=== PATIENT | male | born 1945 ===

== ENCOUNTER 2017-04-20 19:23 | Inpatient (IN) | payer MEDICARE, OTHER ==
--- NOTE | 2017-04-20 19:59 | ED PDOC ---
Arrival/HPI - General Chief Complaint: Dizziness/Lightheaded Time Seen by Provider: 04/20/17 19:30 Historian: Patient - History of Present Illness Narrative History of Present Illness (Text): 04/20/17 19:47 A 71 year old male, whose past medical history includes hypertension, prostate CA, and A-fib on Pradaxa, is brought in by ambulance, presents to the emergency department complaining of near-syncopal episode while at work. Patient reports experiencing, dizziness, as well as slurred speech and had difficulty speaking at the time (which has now resolved). Patient denies any headache, chest pain, shortness of breath, focal weakness, or any other complaints. PMD: Dr. Rico Past Medical History - Provider Review Nursing Documentation Reviewed: Yes - Infectious Disease Hx of Infectious Diseases: None - Cardiac Hx Hypertension: Yes - Genitourinary/Gynecological Hx Prostate Cancer: Yes Hx Prostate Problems: Yes - Psychiatric Hx Substance Use: No - Anesthesia Hx Anesthesia: No Family/Social History - Physician Review Nursing Documentation Reviewed: Yes Family/Social History: No Known Family HX Smoking Status: Never Smoked Hx Alcohol Use: No Hx Substance Use: No Allergies/Home Meds Allergies/Adverse Reactions: Allergies No Known Allergies Allergy (Verified 04/20/17 19:40) Home Medications: Home Meds Medication Instructions Recorded Confirmed Allopurinol [Zyloprim] 300 mg PO DAILY 03/07/16 03/07/16 Dabigatran [Pradaxa] 150 mg PO DAILY 03/07/16 03/07/16 Fenofibrate [Triglide] 160 mg PO DAILY 03/07/16 03/07/16 Furosemide [Lasix] 40 mg PO DAILY 03/07/16 03/07/16 Lisinopril [Zestril] 40 mg PO DAILY 03/07/16 03/07/16 Nebivolol [Bystolic] 20 mg PO DAILY 03/07/16 03/07/16 Pravastatin Sodium [Pravachol] 40 mg PO DAILY 03/07/16 03/07/16 Spironolactone [Aldactone] 25 mg PO DAILY 03/07/16 03/07/16 Review of Systems - Physician Review All systems were reviewed & negative as marked: Yes - Review of Systems Respiratory: absent: SOB Cardiovascular: absent: Chest Pain, Syncope (near-syncopal episode) Neurological: Dizziness, Speech Changes (patient was experieincing slurred speech and difficulty speaking at time of near-syncopal episode while at work.) . absent: Headache, Focal Weakness Physical Exam Vital Signs Temp Pulse Resp BP Pulse Ox 04/20/17 23:23 89 16 137/82 97 04/20/17 20:30 93 H 17 140/85 95 04/20/17 20:03 98.5 F 90 17 123/58 L 98 Mental Status: Positive for: Alert and Oriented X 3 - Systems Exam Head: Present: Atraumatic, Normocephalic Pupils: Present: PERRL Extroacular Muscles: Present: EOMI Conjunctiva: Present: Normal Mouth: Present: Moist Mucous Membranes Neck: Present: Normal Range of Motion Respiratory/Chest: Present: Clear to Auscultation, Good Air Exchange. No: Respiratory Distress, Accessory Muscle Use Cardiovascular: Present: Regular Rate and Rhythm, Normal S1, S2. No: Murmurs Abdomen: Present: Normal Bowel Sounds. No: Tenderness, Distention, Peritoneal Signs Back: Present: Normal Inspection Upper Extremity: Present: Normal Inspection. No: Cyanosis, Edema Lower Extremity: Present: Normal Inspection. No: Edema Neurological: Present: GCS=15, CN II-XII Intact, Speech Normal Skin: Present: Warm, Dry, Normal Color. No: Rashes Psychiatric: Present: Alert, Oriented x 3, Normal Insight, Normal Concentration Medical Decision Making ED Course and Treatment: 04/20/17 20:01 Impression: 71 year old male with near-syncopal episode. Physical exam is benign. Plan: -- EKG -- Chest xray -- Head CT -- Labs -- Urinalysis -- IV Fluids -- Reassess and disposition Progress Notes: 04/20/17 20:40 Case had been d/w the neurologist .Pt. not a candidate for TPA given resolution of symptoms/on Pradaxa. Report date: 04/20/17 21:14 EXAM: CT Head Without Intravenous Contrast Dictated and Authenticated by: Angi Shah MD IMPRESSION: Bilateral white matter changes. This is nonspecific and may include microangiopathic disease, small lacunae of indeterminate chronicity, chronic infarcts and/or encephalomalacia. 04/20/17 22:[address] Truong, who accepts admission under her service. Patient aware of and in agreement with plan. - Lab Interpretations Lab Results: 04/20/17 19:49 04/20/17 19:49 Lab Results 04/20/17 19:49: Sodium 143, Potassium 4.6, Chloride 104, Carbon Dioxide 28, Anion Gap 16, BUN 32 H, Creatinine 1.4, Est GFR ( Amer) > 60, Est GFR ( Non-Af Amer) 50, Random Glucose 102, Calcium 10.5, Total Bilirubin 0.5, AST 38, ALT 34, Alkaline Phosphatase 63, Troponin I < 0.01, Total Protein 7.7, Albumin 4.3, Globulin 3.4, Albumin/Globulin Ratio 1.3, Triglycerides 73, Cholesterol 150 , LDL Cholesterol Direct 96, HDL Cholesterol 44 04/20/17 19:49: PT 12.3, INR 1.08, APTT 32.9 04/20/17 19:49: WBC 13.9 H, RBC 4.80, Hgb 14.7, Hct 43.9, MCV 91.5, MCH 30.6, MCHC 33.5, RDW 13.3, Plt Count 333, MPV 10.2, Gran % 62.3, Lymph % (Auto) 22.7, Baxter % (Auto) 14.2 H, Eos % (Auto) 0.6 L, Baso % (Auto) 0.2, Gran # 8.67 H, Lymph # (Auto) 3.2, Baxter # (Auto) 2.0 H, Eos # (Auto) 0.1, Baso # (Auto) 0.03 - RAD Interpretation Narrative RAD Interpretations (Text): 04/20/17 21:20 CXR- no acute process Radiology Orders: 04/20/17 19:53 HEAD W/O (CODE STROKE) [CT] Stat CHEST PORTABLE [RAD] Stat Medical Program Specialist: ED Physician - EKG Interpretation EKG Interpretation (Text): 04/20/17 21:20 EKG- Atrial fibrillation@ 87,NS T wave changes Interpreted by ED Physician: Yes Type: 12 lead EKG - Medication Orders Current Medication Orders: Sodium Chloride (Sodium Chloride 0.9%) 1,000 mls @ 100 mls/hr IV .Q10H [facility] Last Admin: 04/20/17 20:06 Dose: 100 mls/hr eMAR Start Stop Document 04/20/17 20:06 HI (Rec: 04/20/17 20:06 NH [id number]) Intravenous Solution Start Date 04/20/17 Start Time 20:06 NIHSS Scale ([place]) Time Performed: 19:50 - How Severe is the Stoke Baseline Level of Consciousness: 0=Alert LOC to Questions: 0=Both comments correct LOC to commands: 0=Obeys both correctly Best Gaze: 0=Normal Visual: 0=No visual loss Facial: 0=Normal Motor Arm - Left: 0=No drift Motor Arm - Right: 0=No drift Motor Leg - Left: 0=No drift Motor Leg - Right: 0=No drift Limb Ataxia: 0=Absent Sensory: 0=Normal Best Language: 0=No aphasia Dysarthia: 0=Normal articulation Extinction & Inattention (Neglect): 0=Normal, no object Score: 0 Risk Level: No Stroke Risk rTPA Inclusion/Exclusion - Refusal of Treatment Patient Refused Treatment: No - Inclusion Criteria for Altepase Patient is 18 years or Older: Yes The Clinical Diagnosis of Ischemic Stroke That is Causing a Potentially Disabling Neurological Deficit: No Time of Onset is Well Established to be Less Than 270 Minute Before Treatment Would Begin: Yes Risk/Benefit Discussed With Patient/Family Member Present: Yes - Exclusion Criteria for Altepase Uncontrolled Hypertension at Time of Treatment (Systolic BP above 185 or Diastolic BP above 110 mmHg): No Active Internal Bleeding: No Known Bleeding Diathesis Including but Not Limited to: Platelets Below 100,000/ mm,PTT Above 40 sec After Heparin Use, Current Use of Oral Anitcoagulant With INR Greater Than 1.7 or PT Greater Than 15 secs: No Evidence of an Intracranial Hemorrhage: No Evidence of Major Acute Infarct With Signs Greater Than 1/3 MCA Territory: No Suspicion of Subarachnoid Hemorrhage on Pretreatment Evaluation Even if CT Head Negative For Hemorrhage: No - Warning to TPA With Conditions Condition: Rapid Improvement NIHSS Stroke Scale 3 - Date/Time Evaluation Performed Date Performed: 04/20/17 Time Performed: 19:47 - Scribe Statement The provider has reviewed the documentation as recorded by the Hunter Melvin Provider Scribe Attestation: All medical record entries made by the Scribyony were at my direction and personally dictated by me. I have reviewed the chart and agree that the record accurately reflects my personal performance of the history, physical exam, medical decision making, and the department course for this patient. I have also personally directed, reviewed, and agree with the discharge instructions and disposition. Disposition/Present on Arrival - Present on Arrival Any Indicators Present on Arrival: No History of DVT/PE: No History of Uncontrolled Diabetes: No Urinary Catheter: No History of Decub. Ulcer: No History Surgical Site Infection Following: None - Disposition Have Diagnosis and Disposition been Completed?: Yes Diagnosis: Near syncope, TIA (transient ischemic attack) Disposition: HOSPITALIZED Disposition Time: 22:10 Patient Plan: Observation Patient Problems: Current Active Problems Problem Status Onset Near syncope Acute TIA (transient ischemic attack) Acute Condition: STABLE
[2017-04-20] MEDS ORDERED: Sodium Chloride 0.9% 1,000 ML IV SCH (20:00)
[2017-04-20 20:02] LABS: BASO # 0.03 K/mm3 (0.0-2.0); BASO % 0.2 % (0.0-3.0); EOS # 0.1 (0.0-0.7); EOS % 0.6 % (1.5-5.0); GRAN # 8.67 (1.4-6.5); GRAN % 62.3 % (50.0-68.0); HEMOGLOBIN 14.7 g/dL (14.0-18.0); LYMPH # 3.2 (1.2-3.4); LYMPH % 22.7 % (22.0-35.0); MEAN CELL VOLUME 91.5 fl (80.0-105.0); MEAN CORPUSCULAR HEMOGLOBIN 30.6 pg (25.0-35.0); MEAN CORPUSCULAR HGB CONC 33.5 g/dl (31.0-37.0); MEAN PLATELET VOLUME 10.2 fl (7.0-11.0); MONO % 14.2 % (1.0-6.0); RBC 4.8 10^6/uL (3.5-6.1); RED CELL DISTRIBUTION WIDTH 13.3 % (11.5-14.5); WHITE BLOOD COUNT 13.9 10^3/ul (4.5-11.0)
[2017-04-20 20:10] LABS: INR 1.08 (0.93-1.08); PARTIAL THROMBOPLASTIN TIME 32.9 Seconds (25.1-36.5); PROTHROMBIN TIME 12.3 SECONDS (9.4-12.5)
[2017-04-20 20:12] LABS: ALB/GLOB RATIO 1.3 (1.1-1.8); ALBUMIN 4.3 g/dL (3.0-4.8); ALT/SGPT 34 U/L (7-56); AST/SGOT 38 U/L (17-59); BLOOD UREA NITROGEN 32 mg/dL (7-21); CALCIUM 10.5 mg/dL (8.4-10.5); GFR AFRICAN-AMERICAN > 60; GFR NON-AFRICAN AMERICAN 50; HDL CHOLESTEROL 44 mg/dL (29-60)
--- NOTE | 2017-04-20 20:15 | CT ---
EXAM: CT Head Without Intravenous Contrast CLINICAL HISTORY: 71 years old, male; Signs and symptoms; Speech disturbance; Slurred speech; Additional info: Code stroke TECHNIQUE: Axial computed tomography images of the head/brain without intravenous contrast. All CT scans at this facility use one or more dose reduction techniques, viz.: automated exposure control; ma/kV adjustment per patient size (including targeted exams where dose is matched to indication; i.e. head); or iterative reconstruction technique. Coronal and sagittal reformatted images were created and reviewed. COMPARISON: No relevant prior studies available. FINDINGS: Brain: Bilateral white matter changes. This is nonspecific and may include microangiopathic disease, small lacunae of indeterminate chronicity, chronic infarcts and/or encephalomalacia. No hemorrhage. No edema. Ventricles: No hydrocephalus. Bones: Skull is intact. Sinuses: Mild paranasal sinus mucosal thickening. No acute sinusitis. Mastoid air cells: No mastoid effusion. IMPRESSION: Bilateral white matter changes. This is nonspecific and may include microangiopathic disease, small lacunae of indeterminate chronicity, chronic infarcts and/or encephalomalacia. Acute infarcts/early ischemic changes may not be detectable by this modality; MRI is more sensitive in detecting acute ischemia.
[2017-04-20 20:23] LABS: LDL CHOLESTEROL 96 mg/dL (0-129); TROPONIN I < 0.01 ng/mL
[2017-04-21 04:55] VITALS: BMI 31.5
--- NOTE | 2017-04-21 10:13 | RAD ---
HISTORY: Code Stroke COMPARISON: No prior. FINDINGS: LUNGS: No active pulmonary disease. PLEURA: No significant pleural effusion identified, no pneumothorax apparent. CARDIOVASCULAR: Normal. OSSEOUS STRUCTURES: No significant abnormalities. VISUALIZED UPPER ABDOMEN: Normal. OTHER FINDINGS: None. IMPRESSION: No active disease.
--- NOTE | 2017-04-21 10:14 | CARD ---
APPROVED REPORT EKG Measurement Heart [id number] <Conclusion> Atrial fibrillation Minimal voltage criteria for LVH, may be normal variant Nonspecific T wave abnormality No change
[2017-04-21 10:50] LABS: HEMOGLOBIN 14.1 g/dL (14.0-18.0); MEAN CELL VOLUME 91.1 fl (80.0-105.0); MEAN CORPUSCULAR HEMOGLOBIN 30.5 pg (25.0-35.0); MEAN CORPUSCULAR HGB CONC 33.5 g/dl (31.0-37.0); MEAN PLATELET VOLUME 9.9 fl (7.0-11.0); RBC 4.62 10^6/uL (3.5-6.1); RED CELL DISTRIBUTION WIDTH 13.3 % (11.5-14.5); WHITE BLOOD COUNT 9.3 10^3/ul (4.5-11.0)
[2017-04-21] MEDS: Sodium Chloride 0.9% 1,000 ML IV SCH (10:57)
[2017-04-21] MEDS ORDERED: Nitroglycerin 2% Ointment Foilpak UD TOP PRN (12:59)
--- NOTE | 2017-04-21 17:16 | CP.PCM.CON ---
History of Present Illness - History of Present Illness History of Present Illness: Neurology Consultation Note: Mr. Kiser is a 71-year-old man with a past medical history of hypertension , prostate CA, and A-fib on Pradaxa, who presented to the ED yesterday after an episode of slurred speech, dizziness and near-syncope. When he was evaluated in the ED, he was back to baseline and asymptomatic. However, due to his multiple risk factors for stroke and the duration of symptoms, he was admitted for posterior circulation TIA. Review of Systems - Review of Systems All systems: reviewed and no additional remarkable complaints except Past Patient History - Infectious Disease Hx of Infectious Diseases: None - Past Social History Smoking Status: Never Smoked - CARDIAC Hx Cardiac Disorders: Yes Hx Cardia Arrhythmia: Yes (A-fib) Hx Hypercholesterolemia: Yes Hx Hypertension: Yes - PULMONARY Hx Respiratory Disorders: No - NEUROLOGICAL Hx Neurological Disorder: No - HEENT Hx HEENT Problems: No - RENAL Hx Chronic Kidney Disease: No - HEMATOLOGICAL/ONCOLOGICAL Hx Blood Disorders: Yes Hx Anemia: Yes - INTEGUMENTARY Hx Dermatological Problems: No - MUSCULOSKELETAL/RHEUMATOLOGICAL Hx Musculoskeletal Disorders: Yes Hx Falls: No Hx Fractures: Yes (knee surgery) Hx Gout: Yes - GASTROINTESTINAL Hx Gastrointestinal Disorders: No - GENITOURINARY/GYNECOLOGICAL Hx Genitourinary Disorders: Yes Hx Prostate Problems: Yes (HX of prostate cancer) - PSYCHIATRIC Hx Psychophysiologic Disorder: No - SURGICAL HISTORY Hx Surgeries: Yes Hx Cardiac Catheterization: Yes (PTCA) Hx Cholecystectomy: Yes Hx Orthopedic Surgery: Yes (knee surgery) - ANESTHESIA Hx Anesthesia: No Meds Allergies/Adverse Reactions: Allergies Allergy/AdvReac Type Severity Reaction Status Date / Time No Known Allergies Allergy Verified 04/20/17 19:40 - Medications Medications: Current Medications Acetaminophen (Tylenol 325mg Tab) 650 mg PO Q6H PRN PRN Reason: Fever >100.4 F Allopurinol (Zyloprim) 300 mg PO DAILY [facility] Atorvastatin Calcium (Lipitor) 40 mg PO DIN [facility] Last Admin: 04/21/17 17:00 Dose: 40 mg Dabigatran (Pradaxa) 75 mg PO BID [facility] PRN Reason: Protocol Last Admin: 04/21/17 17:00 Dose: 75 mg Fenofibrate (Tricor) 145 mg PO DAILY [facility] Furosemide (Lasix) 40 mg PO DAILY [facility] Sodium Chloride (Sodium Chloride 0.9%) 1,000 mls @ 50 mls/hr IV .Q20H [facility] Last Admin: 04/21/17 10:57 Dose: 50 mls/hr Lisinopril (Zestril) 20 mg PO BID [facility] Last Admin: 04/21/17 17:00 Dose: 20 mg Nitroglycerin (Nitro-Bid 2% Oint) 1 ea TOP Q4H PRN PRN Reason: accelerated hypertension Ondansetron HCl (Zofran Inj) 4 mg IVP Q6H PRN PRN Reason: Nausea/Vomiting Spironolactone (Aldactone) 12.5 mg PO DAILY [facility] Physical Exam - Constitutional Appears: Well - Head Exam Head Exam: ATRAUMATIC, NORMAL INSPECTION, NORMOCEPHALIC - Eye Exam Eye Exam: EOMI, Normal appearance, PERRL - Neck Exam Neck exam: Positive for: Normal Inspection - Respiratory Exam Respiratory Exam: Clear to Auscultation Bilateral, NORMAL BREATHING PATTERN - GI/Abdominal Exam GI & Abdominal Exam: Normal Bowel Sounds, Soft. absent: Tenderness - Rectal Exam Rectal Exam: Deferred - Back Exam Back exam: NORMAL INSPECTION - Neurological Exam Neurological exam: Alert, CN II-XII Intact, Normal Gait, Oriented x3, Reflexes Normal Additional comments: NIHSS = 0 - Psychiatric Exam Psychiatric exam: Normal Affect, Normal Mood - Skin Skin Exam: Dry, Intact, Normal Color, Warm Results - Vital Signs Recent Vital Signs: Last Vital Signs Temp 98.2 F 04/21/17 12:00 Pulse 61 04/21/17 14:00 Resp 17 04/21/17 12:00 BP 113/68 04/21/17 12:00 Pulse Ox 96 04/21/17 05:33 - Labs Result Diagrams: 04/21/17 10:40 04/20/17 19:49 Labs: Laboratory Results - last 24 hr 04/21/17 10:40 WBC 9.3 D RBC 4.62 Hgb 14.1 Hct 42.1 MCV 91.1 MCH 30.5 MCHC 33.5 RDW 13.3 Plt Count 316 MPV 9.9 Assessment & Plan (1) TIA (transient ischemic attack) Assessment and Plan: The patient is on Pradaxa for atrial fibrillation and is stable without complications. I recommend continuing this medication for stroke prevention. In addition, I recommend the followin. Telemetry 2. MRI brain without contrast, and MRA of the head/neck without contrast 3. Echocardiogram with bubble study 4. Continue Lipitor at current dose 5. PT/OT eval and treatment 6. Fluids with NS at 100 mL/hr 7. Check lipid panel, HbA1c, TSH, B12, folate, vitamin D levels 8. Case management consult Thank you. Status: Acute Priority: High
--- NOTE | 2017-04-21 18:41 | HP ---
DATE OF EXAM: 04/21/2017 HISTORY OF PRESENT ILLNESS: This 71-year-old male was examined at his bedside in the presence of nurse, Linda Goode, registered nurse. The patient was admitted late last evening through the emergency room with concerns of possible transient ischemic attack. According to the patient, he came home last evening felt dizzy, also was noticing problems with his speech and was concerned about the possibility of a stroke. He came to the [facility] at that time. Upon arrival, had no further symptoms of either dizziness or slurred speech. The patient is admitted to rule out transient ischemic attack. PAST MEDICAL HISTORY: The patient's past medical history is extensive and includes history of atherosclerotic heart disease stable. He denies any knowledge of cardiac cath or stroke. He recently in the month of March 2016 underwent cardiac testing including 2D echocardiogram and stress test that were notable for enlarged left atrium, borderline left ventricular ejection fraction, and evidence of mitral regurgitation with an unremarkable stress test in the setting of longstanding chronic atrial fibrillation. The patient also has history of hyperlipidemia, hypertension, gout, obesity. OUTPATIENT MEDICATIONS: Include Aldactone, Lasix, Lipitor, Pradaxa, Tricor, Zestril, Zyloprim, Pravachol, Bystolic. Of note, the patient was given IV Lopressor in the emergency room for accelerated hypertension. Also takes digoxin as an outpatient and was noted to have episodes of bradyarrhythmia on the hospital nursing assistant earlier this morning. ALLERGIES: PATIENT DENIES ANY ALLERGIES TO MEDICATION. He is status post prostate cancer, has completed Lupron injections with his [facility] urologist and states he has had a gallbladder removal and left knee surgery in the distant past. The patient states he has had chronic atrial fibrillation since 2005, was initially treated with Coumadin which was then switched to Pradaxa because of issues with bruising on Coumadin. REVIEW OF SYSTEMS: CONSTITUTIONAL: He denied any fever or chills. HEAD: Denied knowledge of seizure or stroke. EYE: No change in visual acuity. EARS: No hearing loss. THROAT: No swallowing difficulty. NECK: No stiffness. CARDIAC: As per HPI. PULMONARY: No cough. No hemoptysis. GASTROINTESTINAL: He has a history of gallbladder removal. GENITOURINARY: He has prostate cancer. VASCULAR: No claudication. PSYCHOLOGICAL: No depression. NEUROLOGICAL: No knowledge of stroke. HEMATOLOGICAL: No knowledge of anemia. ENDOCRINOLOGICAL: No diabetes, but hyperlipidemia. FAMILY HISTORY: Noncontributory. SOCIAL HISTORY: He is a nondrinker, nonsmoker, non IV drug misuser. 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 Temperature 98.2, respirations 17, pulse 61, blood pressure 113/68, and pulse ox 96% on room air. HEENT: Head normocephalic, atraumatic. Eyes: No icterus. Ears: Clear. Throat: Noninjected. NECK: Supple. HEART: Irregular, S1, S2. LUNGS: Clear. ABDOMEN: Obese. Well-healed vertical incisional scar from previous cholecystectomy. EXTREMITIES: No clubbing, no cyanosis, no edema. SKIN: Without rash. NEUROLOGICAL: Intact. 5/5 motor strength. Sensory intact. Cranial nerves intact. Speech is fluent. LABORATORY DATA: Initial white count 13,900, now 9300; hemoglobin 14.1; hematocrit 42.1; platelets rate 316,000. PT/INR 1.08, PTT 32.9. Sodium 143, K 4.6, chloride 104, bicarb 28. BUN 32, creatinine 1.4. Random blood sugar 102. Hemoglobin A1c 6.3. Bilirubin 0.5, AST 38, ALT 34, alk phos 63. Troponin less than 0.01. Cholesterol 150, triglyceride 73, LDL 96, HDL 44. Chest x-ray was reviewed. It showed no active pulmonary disease, no pneumothorax, no infiltrate, no pleural effusion. EKG showed atrial fibrillation with nonspecific ST-T wave changes. Head CT was reviewed. There were bilateral white matter changes. This was felt to be nonspecific. IMPRESSION: A 71-year-old male with admission for dizziness and speech impediment, now resolved, rule out transient ischemic attack with comorbidities of obesity, stable atherosclerotic heart disease, chronic hypertension, chronic atrial fibrillation, hyperlipidemia, degenerative arthritis, and gout. PLAN: The plan as discussed with the patient, emergency room physician, and Nursing at bedside will be to maintain this patient on the cardiac unit. He is ordered to have physical therapy for reconditioning and gait training while maintaining neuro checks q. shift, high fall risk protocol, and neurological evaluation with Dr. Louis Lopez from Neurology. He is ordered to have a heart-healthy soft bland diet, nasal O2 p.r.n. He will continue on Zyloprim 300 mg p.o. daily, Zestril 20 mg p.o. b.i.d., Tricor 145 mg p.o. daily, 0.9 saline at 50 mL/hour, Pradaxa 75 mg p.o. b.i.d., nitroglycerin 1 inch to chest wall q. 4 hours if systolic blood pressure greater than 160 or diastolic blood pressure greater than 100, Lipitor 40 mg p.o. daily, Lasix 40 mg p.o. daily, and Aldactone 12.5 mg p.o. daily. He is ordered to have a basic metabolic panel and lipid panel in the a.m., and I have asked the nurse to coordinate with Dr. Tacho Lopez any additional neurological testing. He may deem fit at this point. Echocardiography and stress testing were reviewed from March 2016, and I will await further evaluation by Neurology before ordering additional testing at this time. Greater than 75 minutes was spent in the care management, review of x-rays, labs, medication, and orders for this patient today. All questions were answered. Kusum Truong MD [facility]
[2017-04-22] MEDS: Sodium Chloride 0.9% 1,000 ML IV SCH (05:53)
[2017-04-22 06:32] LABS: LDL CHOLESTEROL 99 mg/dL (0-129)
[2017-04-22 06:33] LABS: BLOOD UREA NITROGEN 24 mg/dL (7-21); CALCIUM 9.7 mg/dL (8.4-10.5); GFR AFRICAN-AMERICAN > 60; GFR NON-AFRICAN AMERICAN 59; HDL CHOLESTEROL 33 mg/dL (29-60)
--- NOTE | 2017-04-22 07:14 | CP.PCM.PN ---
Subjective - Date & Time of Evaluation Date of Evaluation: 04/22/17 Time of Evaluation: 07:11 - Subjective Subjective: Mr. Kiser was seen and examined at the bedside. He is alert, oriented in all spheres. He denies any headache, blurred vision, diplopia, dizziness, lightheadedness, nausea, or vomiting. He is able to follow simple commands. There was no untoward events overnight. Objective - Vital Signs/Intake and Output Vital Signs (last 24 hours): Temp Pulse Resp BP Pulse Ox 97.3 F L 59 L 20 113/63 96 04/22/17 05:50 04/22/17 05:50 04/22/17 05:50 04/22/17 05:50 04/22/17 05:50 Intake and Output: 04/22/17 04/22/17 06:59 18:59 Intake Total 720 Output Total 1500 Balance -780 - Medications Medications: Current Medications Acetaminophen (Tylenol 325mg Tab) 650 mg PO Q6H PRN PRN Reason: Fever >100.4 F Allopurinol (Zyloprim) 300 mg PO DAILY [facility] Atorvastatin Calcium (Lipitor) 40 mg PO DIN [facility] Last Admin: 04/21/17 17:00 Dose: 40 mg Dabigatran (Pradaxa) 75 mg PO BID [facility] PRN Reason: Protocol Last Admin: 04/21/17 17:00 Dose: 75 mg Fenofibrate (Tricor) 145 mg PO DAILY [facility] Furosemide (Lasix) 40 mg PO DAILY [facility] Sodium Chloride (Sodium Chloride 0.9%) 1,000 mls @ 50 mls/hr IV .Q20H [facility] Last Admin: 04/22/17 05:53 Dose: 50 mls/hr Lisinopril (Zestril) 20 mg PO BID [facility] Last Admin: 04/21/17 17:00 Dose: 20 mg Nitroglycerin (Nitro-Bid 2% Oint) 1 ea TOP Q4H PRN PRN Reason: accelerated hypertension Ondansetron HCl (Zofran Inj) 4 mg IVP Q6H PRN PRN Reason: Nausea/Vomiting Spironolactone (Aldactone) 12.5 mg PO DAILY [facility] - Labs Labs: 04/21/17 10:40 04/22/17 05:40 PT 12.3 SECONDS (9.4-12.5) 04/20/17 19:49 INR 1.08 (0.93-1.08) 04/20/17 19:49 APTT 32.9 Seconds (25.1-36.5) 04/20/17 19:49 - Constitutional Appears: No Acute Distress - Head Exam Head Exam: NORMAL INSPECTION - Neurological Exam Neurological Exam: Alert, Awake, CN II-XII Intact, Oriented x3 Neuro motor strength exam: Left Upper Extremity: 5, Right Upper Extremity: 5, Left Lower Extremity: 5, Right Lower Extremity: 5 Additional comments: He is alert, oriented x3, follows commands. Sensation is intact. Assessment and Plan (1) TIA (transient ischemic attack) Assessment & Plan: Case discussed with Dr. Lopez, continue all current medical, physical, and occupational therapies. Pending MRI of the brain, MRA of the heada and neck, echocardiogram with bubble study. Recommend to check TSH, B12, folate, vitamin D levels. Status: Acute
--- NOTE | 2017-04-22 08:17 | CARD ---
APPROVED REPORT EKG Measurement Heart [id number] <Conclusion> Atrial fibrillation NSSTW changes No change
--- NOTE | 2017-04-22 13:31 | MRI ---
PROCEDURE: MRI BRAIN WITHOUT CONTRAST HISTORY: TIA COMPARISON: Comparison made with prior CT scan of the brain dated 04/20/2017 TECHNIQUE: Multiplanar, multisequence MR images of the brain were obtained without intravenous contrast enhancement. This examination is limited due to motion artifact. FINDINGS: HEMORRHAGE: No acute parenchymal, subarachnoid or extra-axial hemorrhage. No evidence of hemosiderin deposition identified on gradient echo weighted sequence. DWI: There is a small acute/ subacute infarct in the right anterolateral and mid-superior vermis. No additional acute infarct so far as can be seen. Note that the diffusion imaging sequences quite limited due to crossing artifact BRAIN PARENCHYMA: Mild diffuse/ confluent chronic periventricular white matter ischemic changes with multiple tiny lacunar type infarcts scattered about the deep and subcortical white matter both cerebral hemispheres. Additionally, there are chronic appearing brainstem lacunar type ischemic changes. There may also be scattered chronic bilateral basal nuclei lacunar type infarcts difficult to distinguish from numerous dilated perivascular spaces. Moderate volume loss. VENTRICLES: No obstructive hydrocephalus. CRANIUM: There are no acute calvarial fractures. ORBITS: Orbits and contents grossly unremarkable. PARANASAL SINUSES/MASTOIDS: Minimal mucosal thickening noted within the ethmoid air complex VASCULAR SYSTEM: Visualized major vascular flow voids at skull base are patent. OTHER FINDINGS: None. IMPRESSION: Limited motion degraded study. There is a small acute/ subacute right vermian infarct. Mild chronic white matter and brainstem ischemic changes. There may also be a few scattered chronic bilateral basal nuclei lacunar type infarcts difficult to distinguish from numerous dilated perivascular spaces. Moderate volume loss. Acute findings discussed with 2 North charge nurse Chelsea at approximately 1:21 p.m. with written down and read back verification.
--- NOTE | 2017-04-22 13:50 | MRI ---
PROCEDURE: MRA of the brain dated 04/22/2017 HISTORY: TIA COMPARISON: None available. TECHNIQUE: 3D time of flight MR angiography of the intracranial arteries was performed. Rotating maximum intensity projection images were generated. Study is limited by with duplication of the intra cerebral vasculature possibly secondary to utilization of the flex coil for this exam as patient was unable to fit into standard coronal. FINDINGS: INTERNAL CAROTID ARTERIES: Unremarkable. The skull base, petrous, cavernous and supraclinoid segments are bilaterally widely patient. ANTERIOR CEREBRAL ARTERIES: Unremarkable. A1 and A2 segments are widely patent. Smaller distal branches unremarkable, as visualized. MIDDLE CEREBRAL ARTERIES: Unremarkable. M1 and M2 segments are widely patent. Perisylvian branches grossly symmetric. POSTERIOR CIRCULATION: Basilar Artery: Unremarkable. Distal Vertebral Arteries: Unremarkable. Posterior Cerebral Arteries: Unremarkable. Posterior Inferior Cerebellar Arteries: Unremarkable. ANEURYSM/ VASCULAR MALFORMATIONS: No evidence of large aneurysm nor vascular malformation. . OTHER FINDINGS: None. IMPRESSION: Limited study as described. None no evidence of occlusion or significant stenotic lesion. No definitive evidence of large aneurysm nor vascular malformation on within limitation of the exam
--- NOTE | 2017-04-22 16:08 | MRI ---
PROCEDURE: MRA angiography of the neck dated 04/22/2017 and HISTORY: TIA COMPARISON: No prior study available for comparison TECHNIQUE: 2D and 3D phye-rm-ltfbso (TOF) angiography of the neck was performed. Rotating maximum intensity projection images of the cervical carotid and vertebral arteries were generated. The origins of the common carotid arteries were not visualized, which is a limitation inherent to the non-contrast time of flight technique. Examination is limited likely due to utilization of flex coil for this study as patient was unable to fit into standard coil FINDINGS: The the carotid bifurcations proximal and distal internal carotid arteries are not visualized on the and 3D dybj-vu-tzhqmd sequences though are visible though poorly seen on the 2D fyan-te-rravrc imaging . There is also a abrupt cut off of a short segment of the right vertebral artery on 3D imaging though. This segment is visible on 2D imaging. No definitive evidence of occlusion or significant stenosis however carotid Doppler study is recommended for further evaluation RIGHT CAROTID ARTERIES: Common Carotid Artery: Normal. Carotid Bifurcation: Normal. Internal Carotid Artery:Normal. External Carotid Artery (proximal branches): Normal. LEFT CAROTID ARTERIES: Common Carotid Artery: Normal. Carotid Bifurcation: Normal. Internal Carotid Artery:Normal. External Carotid Artery (proximal branches): Normal. VERTEBRAL ARTERIES: Right Vertebral Artery: Normal. Left Vertebral Artery: Normal. OTHER FINDINGS: None. IMPRESSION: There is abrupt cut off of the of a short segment of the right vertebral artery on the 3D lqiq-hv-mzucwa at imaging felt to be secondary to artifact on the 3D sequences as the same segment of vertebral arteries visible on 2D sequences on the. New. The carotid bifurcations and distal internal carotid arteries are also not well visualized on the 3D sequences though are visualized on 2D sequences. Recommend follow-up carotid Doppler exam.
--- NOTE | 2017-04-22 16:36 | PN ---
DATE: 04/22/2017 SUBJECTIVE: This 71-year-old male was examined at the bedside and this case was reviewed in detail with himself and his nurse, Kailey Tran. The patient remains alert and oriented. He is denying any chest pain, fever, chills, shortness of breath, slurred speech or motor weakness. He has been seen by Neurology and he is awaiting testing including MRA of the brain and neck as well as MRI and additional lab testing including vitamin B12, vitamin D 25-hydroxy and folic acid levels. The patient remains in atrial fibrillation rhythm on the cardiac exercise specialist and has had no further pauses since withholding his digoxin and beta-blockers. PHYSICAL EXAMINATION: VITAL SIGNS: Temperature is 97.9, respirations 20, pulse 75, blood pressure 122/74, pulse ox 97% on room air. HEENT: Head: Normocephalic, atraumatic. Eyes: No icterus. Ears: Clear. Throat: Noninjected. NECK: Supple. HEART: Irregular S1, S2. LUNGS: Clear. ABDOMEN: Soft. EXTREMITIES: No edema. SKIN: Without rash. NEUROLOGICAL: Intact. Motor strength 5/5. Cranial nerves intact. PSYCHOLOGICAL: Alert and oriented x3. Speech fluent. VASCULAR: Legs warm to touch. LABORATORY DATA AND IMAGING: White count 9300, hemoglobin 14.1, hematocrit 42.1, platelets 316,000. PT/INR 1.08. Sodium 142, K 4.3, chloride 105, bicarb 26, BUN 24, creatinine 1.2, random blood sugar 106. Estimated GFR 59 mL/minute. Cholesterol 152, triglycerides 113, LDL 99, HDL 33. TSH normal 2.28. Troponin less than 0.01. Hemoglobin A1c 6.3. Head CT showed no acute infarct or hemorrhage. EKG showed atrial fibrillation with nonspecific ST-T wave changes. Chest x-ray showed no evidence of infiltrate, pneumothorax, effusion or congestive heart failure. IMPRESSION AND PLAN: This is a 71-year-old male status post transient ischemic attack, rule out stroke who presented with dizziness and altered speech at home, now resolved with comorbidities of stable atherosclerotic heart disease, history of hypertension, hyperlipidemia, chronic atrial fibrillation, degenerative arthritis and gout. The plan as discussed with the patient and nursing will be to continue spironolactone, Lasix, Lipitor, Pradaxa, 0.9 saline, TriCor, Zestril and allopurinol. He is scheduled for echo, MRA of neck, MRA of brain, MRI. He continues on heart-healthy diet, fall protocol, neuro checks q.6 and cardiac monitoring with physical and occupational therapy requested. Based on clinical results and progress, additional testings will be entertained and all of the above were reviewed in detail with the patient, nursing and Neurology co-consultants. Greater than 35 minutes was spent in the care management, review of x-rays, labs, medication and ordering of testing for this patient today. All questions were answered. Kusum Truong MD MTDD
[2017-04-22 17:25] LABS: FOLATE 10.5 ng/mL
[2017-04-23] MEDS: Sodium Chloride 0.9% 1,000 ML IV SCH ×2 (01:34→23:49)
--- NOTE | 2017-04-23 12:55 | CP.PCM.PN ---
Subjective - Date & Time of Evaluation Date of Evaluation: 04/23/17 Time of Evaluation: 10:00 - Subjective Subjective: Neuro progress note: Pt was seen and examined at the bedside. No acute events overnight. He is AAO x 3. He is able to follow simple commands. Pt denies any headache, blurred vision, diplopia, dizziness, lightheadedness, nausea, or vomiting. 12 Point ROS performed and neg other than stated above. Objective - Vital Signs/Intake and Output Vital Signs (last 24 hours): Temp Pulse Resp BP Pulse Ox 97.5 F L 80 20 116/62 98 04/23/17 06:00 04/23/17 09:59 04/23/17 06:00 04/23/17 09:59 04/23/17 06:00 Intake and Output: 04/23/17 04/23/17 06:59 18:59 Intake Total 770 Output Total 1000 Balance -230 - Medications Medications: Current Medications Acetaminophen (Tylenol 325mg Tab) 650 mg PO Q6H PRN PRN Reason: Fever >100.4 F Allopurinol (Zyloprim) 300 mg PO DAILY [facility] Last Admin: 04/23/17 09:59 Dose: 300 mg Apixaban (Eliquis) 5 mg PO BID [facility] PRN Reason: Protocol Last Admin: 04/23/17 09:58 Dose: 5 mg Atorvastatin Calcium (Lipitor) 40 mg PO DIN [facility] Last Admin: 04/22/17 17:30 Dose: 40 mg Fenofibrate (Tricor) 145 mg PO DAILY [facility] Last Admin: 04/23/17 09:59 Dose: 145 mg Furosemide (Lasix) 40 mg PO DAILY [facility] Last Admin: 04/23/17 09:59 Dose: 40 mg Sodium Chloride (Sodium Chloride 0.9%) 1,000 mls @ 50 mls/hr IV .Q20H [facility] Last Admin: 04/23/17 01:34 Dose: 50 mls/hr Lisinopril (Zestril) 20 mg PO BID [facility] Last Admin: 04/23/17 09:59 Dose: 20 mg Nitroglycerin (Nitro-Bid 2% Oint) 1 ea TOP Q4H PRN PRN Reason: accelerated hypertension Ondansetron HCl (Zofran Inj) 4 mg IVP Q6H PRN PRN Reason: Nausea/Vomiting Spironolactone (Aldactone) 12.5 mg PO DAILY [facility] Last Admin: 04/23/17 09:59 Dose: 12.5 mg - Labs Labs: 04/21/17 10:40 04/22/17 05:40 PT 12.3 SECONDS (9.4-12.5) 04/20/17 19:49 INR 1.08 (0.93-1.08) 04/20/17 19:49 APTT 32.9 Seconds (25.1-36.5) 04/20/17 19:49 - Constitutional Appears: No Acute Distress - Eye Exam Eye Exam: EOMI, PERRL - Neurological Exam Neurological Exam: Alert, Awake, Oriented x3 Neuro motor strength exam: Left Upper Extremity: 5, Right Upper Extremity: 5, Left Lower Extremity: 5, Right Lower Extremity: 5 Additional comments: Sensation is intact. Assessment and Plan - Assessment and Plan (Free Text) Assessment: 71-year-old man with a past medical history of hypertension, prostate CA, and A- fib on Pradaxa, who presented to the ED after an episode of slurred speech, dizziness and near-syncope 2/2 small acute/ subacute R vermian infarct as per MRI - CTA head and neck ordered - Pt currently on Eliquis - Cont Statin - F/u echo report - F/u cardiology recs - HOB elevation at 45 degrees - Maintain strict blood pressure with systolics <160 - Control serum glucose to maintain euglycemia blood sugars 140-180 - Neuro-checks - PT and OT Case and plan was reviewed and discussed with Dr Byrd.
--- NOTE | 2017-04-23 15:17 | CT ---
PROCEDURE: CT Angiography of the neck with contrast HISTORY: Stroke COMPARISON: None available. TECHNIQUE: Contiguous axial images of the neck were obtained from the level of the skull-base to the superior mediastinum in the arteriographic phase of enhancement. Coronal and sagittal reformats or also generated. IV contrast dose: 150 cc of Omni 350 Radiation Dose - DLP: 604 mGy-cm This CT exam was performed using one or more of the following dose reduction techniques: Automated exposure control, adjustment of the mA and/or kV according to patient size, and/or use of iterative reconstruction technique. FINDINGS: RIGHT CAROTID ARTERIES: Common Carotid Artery: Normal. Carotid Bifurcation: Normal. Internal Carotid Artery:Normal. External Carotid Artery (proximal branches): Normal. LEFT CAROTID ARTERIES: Common Carotid Artery: Normal. Carotid Bifurcation: Normal. Internal Carotid Artery:Normal. External Carotid Artery (proximal branches): Normal. VERTEBRAL ARTERIES: Right Vertebral Artery: Normal. Left Vertebral Artery: Normal. OTHER FINDINGS: There is tortuosity of the internal carotids IMPRESSION: No carotid or vertebral stenosis CT Angiography of the Brain. HISTORY: Stroke COMPARISON: None available. TECHNIQUE: CT angiography of the intracranial arteries was performed. Coronal and sagittal maximum intensity projection reformated images were generated. This CT exam was performed using one or more of the following dose reduction techniques: Automated exposure control, adjustment of the mA and/or kV according to patient size, and/or use of iterative reconstruction technique. FINDINGS: INTERNAL CEREBRAL ARTERIES: Unremarkable. The skull base, petrous, cavernous and supraclinoid segments are bilaterally widely patent. ANTERIOR CEREBRAL ARTERIES: Unremarkable. A1 and A2 segments are widely patent. Smaller distal branches unremarkable, as visualized. MIDDLE CEREBRAL ARTERIES: Unremarkable. M1 and M2 segments are widely patent. Perisylvian branches grossly symmetric. POSTERIOR CIRCULATION: Basilar Artery: Unremarkable. Distal Vertebral Arteries: Unremarkable. Posterior Cerebral Arteries: Unremarkable. Posterior Inferior Cerebellar Arteries: Unremarkable. ANEURYSM/ VASCULAR MALFORMATIONS: None. OTHER FINDINGS: None. IMPRESSION: Unremarkable CT Angiography of the Brain.
--- NOTE | 2017-04-23 15:54 | US ---
PROCEDURE: Bilateral carotid artery duplex ultrasound HISTORY: Carotid stenosis PHYSICIAN(S): Roby García MD. TECHNIQUE: Duplex sonography and color-flow Doppler were used to evaluate the carotid bifurcations and limited segments of the vertebral arteries bilaterally. FINDINGS: There is mild smooth heterogeneous plaque noted at the carotid bifurcations bilaterally. The peak systolic velocity in the proximal right internal carotid artery is 60 cm/sec. This corresponds to a 20 to 39% proximal right ICA stenosis. Normal systolic velocities are noted in the proximal right external carotid artery. There is antegrade flow in the right vertebral artery. The peak systolic velocity in the proximal left internal carotid artery is 78 cm/sec. This corresponds to a 20 to 39% proximal left ICA stenosis. Normal systolic velocities are noted in the proximal left external carotid artery. There is antegrade flow in the left vertebral artery. IMPRESSION: 1. Bilateral 20-39% proximal ICA stenoses. 2. Antegrade flow in both vertebral arteries.
--- NOTE | 2017-04-23 18:51 | PN ---
DATE: 04/23/2017 SUBJECTIVE: This 71-year-old male was examined at the bedside and the case was reviewed in detail with himself and Nursing. There was an healthcare interpreter present for the interview. The patient now has evidence of a right vermian infarct on MRI and CTA of the head and neck as well as carotid ultrasounds are pending. Also pending is the patient's 2D echocardiogram. The patient denies any further slurred speech, dizziness, or syncopal events and is ambulating independently on the child monitor. He denies fever, chills, chest pain, or shortness of breath and is in an atrial fibrillation rhythm on the child monitor. OBJECTIVE: VITAL SIGNS: Temperature 97.5, respirations 20, pulse 70, and blood pressure 116/62 with a pulse ox of 98% room air. HEENT: Head normocephalic, atraumatic. Eyes: No icterus. Ears: Clear. Throat: Noninjected. NECK: Supple. HEART: Irregular, S1, S2. LUNGS: Clear. ABDOMEN: Soft. EXTREMITIES: No edema. SKIN: Without rash. NEUROLOGICAL: Intact. Cranial nerves II through XII intact. PSYCHOLOGICAL: Alert. VASCULAR: Legs warm to touch. LABORATORY DATA: White count 9300, hemoglobin 14.1, hematocrit 42.1, and platelets 316,000. PT/INR 1.08, PTT 32.9. Sodium 142, potassium 4.3, chloride 105, bicarb 26. BUN 24, creatinine 1.2. Random blood sugar 106. Cholesterol 152, triglycerides 113, LDL 99, HDL 33. B12 normal 309. Vitamin D level 36.2, normal. Folic acid 10.5, normal. TSH 2.28 normal. IMPRESSION: A 71-year-old male with a right vermian infarct on MRI, who presented with history of slurred speech and dizziness with near syncope with comorbidities of obesity, chronic hypertension, chronic atrial fibrillation, previously on Pradaxa, now upgraded to Eliquis 5 mg p.o. b.i.d. by Neurology, also with hyperlipidemia, degenerative arthritis, and gout. The plan as discussed with the patient, Nursing, and Neurology will be to maintain this patient on the cardiac unit. He is receiving physical therapy for ambulation safety. He remains on neuro checks q. shift and fall precautions and is continuing on a heart-healthy diet. He is scheduled for CTA of the head and neck, carotid ultrasound, and echocardiography is pending. He continues on Zyloprim, Zestril, Tricor, Lipitor, Lasix, Eliquis, and Aldactone. Ultimate plan will be for discharge to home when medically cleared by Neurology. Greater than 35 minutes was spent in the care, review of x-rays, labs, medication, and ordering of testings and discussion with this patient regarding all of the above. All questions were answered. Kusum Truong MD MTDD
--- NOTE | 2017-04-23 20:33 | CARD ---
APPROVED REPORT EXAM: Two-dimensional and M-mode echocardiogram with Doppler and color Doppler. INDICATION CVA/TIA Syncope 2D DIMENSIONS Left Atrium (2D)4.7 (1.6-4.0cm)IVSd1.3 (0.7-1.1cm) LVDd4.9 (3.9-5.9cm)PWd1.2 (0.7-1.1cm) LVDs3.8 (2.5-4.0cm)FS (%) 24.1 % LVEF (%)47.8 (>50%) M-Mode DIMENSIONS Aortic Root2.70 (2.2-3.7cm)Aortic Cusp Exc.1.70 (1.5-2.0cm) Aortic Valve AoV Peak Spnqjsks034.0cm/Bernie Peak GR.7mmHg Mitral Valve E/A ratio0.0 TDI E/Lateral E'0.0E/Medial E'0.0 Tricuspid Valve TR Peak [id number] [id number] Peak Gr.25mmHg [id number] LEFT VENTRICLE The left ventricle is normal size. There is mild concentric left ventricular hypertrophy. The systolic function is mildly impaired. There is global hypokinesis of the left ventricle. RIGHT VENTRICLE The right ventricle is normal size. There is normal right ventricular wall thickness. The right ventricular systolic function is normal. ATRIA The left atrium is severely dilated. The right atrium is mildly dilated. AORTIC VALVE The aortic valve is not well visualized and it may be bicusped There is trace aortic regurgitation. MITRAL VALVE The mitral valve is mildly thickened. Mitral regurgitation is mild. TRICUSPID VALVE There is mild pulmonary hypertension. GREAT VESSELS The aortic root is normal in size. <Conclusion> The left ventricle is normal size. There is mild concentric left ventricular hypertrophy. The systolic function is mildly impaired. There is global hypokinesis of the left ventricle. The left atrium is severely dilated. The aortic valve is not well visualized and it may be bicusped There is mild pulmonary hypertension. Mitral regurgitation is mild.
[2017-04-24 12:03] VITALS: BP 127/84; PULSE 74
[2017-04-24 12:18] VITALS: RESP 16; TEMP 98.8; O2SAT 98
--- NOTE | 2017-04-24 12:39 | CP.PCM.PN ---
Subjective - Date & Time of Evaluation Date of Evaluation: 04/24/17 Time of Evaluation: 11:00 - Subjective Subjective: Neuro progress note: Pt was seen and examined at the bedside. No acute events overnight. He is able to following commands appropriately. Pt denies any residual symptoms. AAo x 3. No complaints at this time. 12 Point ROS performed and neg other than stated above. Objective - Vital Signs/Intake and Output Vital Signs (last 24 hours): Temp Pulse Resp BP Pulse Ox 98.8 F 74 16 127/84 98 04/24/17 12:00 04/24/17 12:00 04/24/17 12:00 04/24/17 12:02 04/24/17 12:00 Intake and Output: 04/24/17 04/24/17 06:59 18:59 Intake Total 1000 290 Output Total 900 Balance 100 290 - Medications Medications: Current Medications Acetaminophen (Tylenol 325mg Tab) 650 mg PO Q6H PRN PRN Reason: Fever >100.4 F Allopurinol (Zyloprim) 300 mg PO DAILY [facility] Last Admin: 04/24/17 12:00 Dose: 300 mg Apixaban (Eliquis) 5 mg PO BID [facility] PRN Reason: Protocol Last Admin: 04/24/17 12:00 Dose: 5 mg Atorvastatin Calcium (Lipitor) 40 mg PO DIN [facility] Last Admin: 04/23/17 18:04 Dose: 40 mg Fenofibrate (Tricor) 145 mg PO DAILY [facility] Last Admin: 04/24/17 12:00 Dose: 145 mg Furosemide (Lasix) 40 mg PO DAILY [facility] Last Admin: 04/24/17 12:02 Dose: 40 mg Sodium Chloride (Sodium Chloride 0.9%) 1,000 mls @ 50 mls/hr IV .Q20H [facility] Last Admin: 04/23/17 23:49 Dose: 50 mls/hr Lisinopril (Zestril) 20 mg PO BID [facility] Last Admin: 04/24/17 12:00 Dose: 20 mg Nitroglycerin (Nitro-Bid 2% Oint) 1 ea TOP Q4H PRN PRN Reason: accelerated hypertension Ondansetron HCl (Zofran Inj) 4 mg IVP Q6H PRN PRN Reason: Nausea/Vomiting Spironolactone (Aldactone) 12.5 mg PO DAILY [facility] Last Admin: 04/24/17 12:01 Dose: 12.5 mg - Labs Labs: 04/21/17 10:40 04/22/17 05:40 PT 12.3 SECONDS (9.4-12.5) 04/20/17 19:49 INR 1.08 (0.93-1.08) 04/20/17 19:49 APTT 32.9 Seconds (25.1-36.5) 04/20/17 19:49 - Constitutional Appears: No Acute Distress - Eye Exam Eye Exam: EOMI, PERRL Pupil Exam: NORMAL ACCOMODATION - Neurological Exam Neurological Exam: Alert, Awake, CN II-XII Intact, Oriented x3 Neuro motor strength exam: Left Upper Extremity: 5, Right Upper Extremity: 5, Left Lower Extremity: 5, Right Lower Extremity: 5 Additional comments: 71-year-old man with a past medical history of hypertension, prostate CA, and A- fib on Pradaxa, who presented to the ED after an episode of slurred speech, dizziness and near-syncope 2/2 small acute/ subacute R vermian infarct as per MRI - CTA head and neck - negative - Cont Eliquis, and Statin - F/u echo report - Carotid US - neg - F/u cardiology recs - HOB elevation at 45 degrees - Maintain strict blood pressure with systolics <160 - Control serum glucose to maintain euglycemia blood sugars 140-180 - Neuro-checks - PT and OT Case and plan was reviewed and discussed with Dr Byrd.
--- NOTE | 2017-04-24 17:51 | PN ---
DATE: 04/24/2017 SUBJECTIVE: This 71-year-old male was examined on the cardiac knight. This case was reviewed in detail with his nurse at the bedside, Yvonne Dobson, who acted as a human services assistant and I have also discussed this case in detail today with Dr. Jevon Cheema from Cardiology who saw the patient earlier today. Of note, the patient had head and neck CTA and carotid artery ultrasounds, which were unremarkable for carotid artery stenosis. He did have an echocardiogram that was reviewed by Dr. Cheema which confirms left atrial enlargement, left ventricle normal in size, concentric left ventricular hypertrophy, systolic left ventricle function mildly impaired with a probable bicuspid aortic valve, mild pulmonary hypertension, and mild mitral regurgitation. Since a bubble test was not done on this study, it was ordered and reviewed by Dr. Cheema who informs me that it is negative for any evidence of patent foramen ovale The case was re-reviewed with Dr. Cheema, he feels the patient is safe for discharge on Eliquis 5 mg p.o. b.i.d. and on his review, there was no evidence of any left ventricle thrombus. He told the patient to follow up with his primary care physician, Dr. Jese Rico regarding the issue of his congenital bicuspid aortic valve, which will need to be monitored serially with echocardiography in his future. The patient is aware of this recommendation and is in agreement. At present, I am awaiting Neurology followup regarding clearance for discharge. On review of studies, brain MRI was positive for a right vermian infarct, probably on the basis of his chronic atrial fibrillation and Cardiology agrees with the adjustment of his anticoagulation from Pradaxa to Eliquis 5 mg p.o. b.i.d. The patient is completely fluent in speech. He has no motor defects and is ambulating independently. 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 PHYSICAL EXAMINATION: VITAL SIGNS: Temperature 98.8, respirations 16, pulse 74, and blood pressure 127/84 with a pulse ox of 98%. HEENT: Head: Normocephalic, atraumatic. Eyes: No icterus. Ears: Clear. Throat: Noninjected. NECK: Supple. HEART: Irregular S1, S2. LUNGS: Clear. ABDOMEN: Soft. EXTREMITIES: No edema. SKIN: No rash. VASCULAR: No claudication. Legs warm to touch. PSYCHOLOGIC: Alert and oriented x3. NEUROLOGIC: Grossly intact. LABORATORY DATA: White count 9300, hemoglobin 14.1, hematocrit 42.1, platelets 316,000. PT/INR 1.08, PTT 32.9. Sodium 142, K 4.3, chloride 105, bicarb 26, BUN 24, creatinine 1.2, random blood sugar 106. Hemoglobin A1c normal 6.3. Troponin less than 0.01. Cholesterol 152, triglycerides 113, LDL 99, HDL 33. B12 is 309, vitamin D level 36.2, folic acid 10.5. TSH normal 2.28. IMPRESSION: A 71-year-old male with new right vermian stroke on MRI and comorbidities of chronic hypertension; mild cardiomyopathy; bicuspid aortic valve; mild mitral regurgitation; dilated left atrium; chronic atrial fibrillation, now on Eliquis 5 mg p.o. b.i.d.; hyperlipidemia; obesity; degenerative arthritis; and gout. PLAN: To await Neurology followup. The patient has been cleared by Dr. Cheema for discharge with instructions to follow up his echocardiography issues of bicuspid aortic valve and mitral regurgitation and dilated left atrium and reduced left ventricular ejection fraction with his photography teacher and Dr. Jese Rico, his PMD. The patient is aware and in agreement with this. He is also instructed he will need Neurology followup as directed with his primary care physician's instructions and understands that medications now include Aldactone 12.5 mg p.o. daily, Eliquis 5 mg p.o. b.i.d., Lasix 40 mg p.o. daily, Lipitor 40 mg p.o. at dinner time, TriCor 145 mg p.o. daily, Zestril 20 mg p.o. b.i.d., and Zyloprim 300 mg p.o. daily. He is instructed on a heart-healthy low cholesterol diet and is aware of need for cautious outpatient monitoring upon discharge. Greater than 35 minutes was spent in the care management, review of x-rays, labs, medication, discussion of this patient's overall results with him with nursing at bedside and discussion with Dr. Jevon Cheema from Cardiology. All questions were answered. Kusum Truogn MD MTDD
--- NOTE | 2017-04-24 21:57 | CON ---
DATE: 04/24/2017 INDICATIONS: Atrial fib, stroke. HISTORY OF PRESENT ILLNESS: This is a 71-year-old man admitted on the with dizziness and difficulty speaking, described as slurred speech. His symptoms have subsequently improved. During his hospitalization, he has had a neurologic evaluation. There was evidence of a para vermal acute ischemic stroke. He has known atrial fibrillation. He was on Pradaxa, but in talking to the patient, I find that he was probably taking the Pradaxa only once a day, possibly this subtherapeutic dosing was the cause for the stroke on an embolic basis. There was no chest pain, shortness of breath, palpitations, orthopnea, PND, fever, chills, cough, sputum production, hemoptysis, abdominal pain, nausea, vomiting, diarrhea, constipation or melena. PAST MEDICAL HISTORY: Notable for hypertension, atrial fibrillation. He has apparently undergone several stress tests over the years, the most recent one was an unremarkable nuclear stress test in 03/2016. He has atrial fibrillation for many years. He has been on Coumadin and more recently Pradaxa. While in the hospital, he was switched to Eliquis. He has a history of prostate cancer and he is on Lupron. He has a history of hyperlipidemia, gout and gallbladder surgery. There is no history of rheumatic fever, myocardial infarction, congestive heart failure, diabetes. MEDICATIONS: At the time of admission included spironolactone, Bystolic, Lasix, Pradaxa which he was taking once a day, Pravachol, fenofibrate, lisinopril, allopurinol. ALLERGIES: THERE ARE NO KNOWN MEDICATION ALLERGIES. CURRENT MEDICATIONS: Include spironolactone, Eliquis, Lasix, Lipitor, nitro paste, Tricor, lisinopril and allopurinol. He has not been on Bystolic though his atrial fibrillation rate is well controlled. 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 He does not smoke, he does not drink alcohol significantly. He is ambulatory. FAMILY HISTORY: Noncontributory. REVIEW OF SYSTEMS: A 10-point review of systems otherwise unremarkable except as noted above. PHYSICAL EXAMINATION: GENERAL: He is a well-developed male, lying in bed, on telemetry, in no acute distress. VITAL SIGNS: Notable for atrial fibrillation at 54 to 65 beats per minutes, he is afebrile, 118/68, respirations 20, O2 sat 95% to 98% on room air. HEENT: Reveals no neck vein distention, thyromegaly, carotid bruits. Mucous membranes moist. Conjunctivae pink. NECK: Supple. LUNGS: Lung haynes clear. HEART: Revealed an irregular rhythm, normal first and second heart sounds, soft systolic murmur along the left sternal border, PMI not displaced. ABDOMEN: Soft. Bowel sounds present. No mass, organomegaly, tenderness, rebound or guarding. No CVA tenderness. No palpable abdominal aortic aneurysm. EXTREMITIES: Revealed no cyanosis, clubbing or edema. NEUROLOGIC: Awake, alert and oriented. SKIN: Warm and dry. No rash or cellulitis. PSYCHIATRIC: Normalized mood and affect. LABORATORY DATA AND IMAGING: A chest x-ray revealed no active disease. EKG demonstrates atrial fibrillation with nonspecific ST wave changes. Several neuro imaging reports are reviewed, apparently there is an acute paravermal ischemic stroke. CBC is unremarkable. PT, INR and PTT unremarkable. Chemistry is unremarkable. LFTs unremarkable. BUN 32, creatinine 1.4, repeat 1.2, troponin less than 0.01, cholesterol 150, LDL 96, HDL 44, TSH normal, folate normal, B12 normal, vitamin D 36.2. IMPRESSION: Chase Kiser is a 71-year-old man with atrial fibrillation who was on Pradaxa, but only taking it once a day. He appears to had an embolic stroke, the symptoms, which have resolved. He is now on Eliquis. He has been seen by Neurology. He has undergone evaluation. An echocardiogram revealed evidence of a bicuspid aortic valve. Overall, left ventricular function was said to be mildly impaired. There was mild mitral regurgitation. PLAN: Chase Kiser has an evidence of embolic stroke, probably on embolic basis while taking Pradaxa 150 mg once a day. I had discussed the case with Dr. Truong. He will be switched Eliquis. He has been informed to take it twice a day and not to miss doses. He will follow up with his regular cutter machine and medical physicians upon leaving the hospital. He will continue his prehospitalization medications as before. He will report any further neurologic symptoms promptly. A Arabic speaking nurse served as an millwright supervisor for this interview. I spoke with Dr. Truong regarding his case. Jevon Cheema MD [facility] # [phone] FLOR
--- NOTE | 2017-04-25 10:48 | CARD ---
APPROVED REPORT EXAM: Two-dimensional and M-mode echocardiogram with Doppler and color Doppler. INDICATION CVA/TIA LEFT VENTRICLE The left ventricle is normal size. There is mild concentric left ventricular hypertrophy. The left ventricular function is normal. The left ventricular ejection fraction is within the normal range. There is normal LV segmental wall motion. RIGHT VENTRICLE The right ventricle is normal size. The right ventricular systolic function is normal. ATRIA The left atrium is moderately dilated. The right atrium is mildly dilated. The interatrial septum is intact with no evidence for an atrial septal defect. Injection of bubbles documented no interatrial shunt. AORTIC VALVE The aortic valve is normal in structure. MITRAL VALVE The mitral valve is normal in structure. TRICUSPID VALVE The tricuspid valve is normal in structure. GREAT VESSELS The aortic root is normal in size. PERICARDIAL EFFUSION There is no pericardial effusion. <Conclusion> Limited study performed. No parasternal images obtained. Normal LV systolic function. No valvular abnormalities noted. The interatrial septum is intact with no evidence for an atrial septal defect or PFO based on bubble injection findings.
--- NOTE | 2017-04-25 16:36 | DS ---
DATE; 04/24/2017 FINAL DIAGNOSES: 1. Right vermian brain infarct. 2. Chronic atrial fibrillation. 3. Degenerative arthritis. 4. Gout. 5. Hyperlipidemia. 6. Chronic hypertension. 7. Cardiomyopathy. 8. Obesity. DISPOSITION: Home. FOLLOWUP: Follow up with his primary care physician, Dr. Jese Rico within the next 48 hours. CONSULTANTS: Dr. Jevon Cheema from Cardiology, Dr. Tacho Lopez from Neurology. The patient was given copy of 2D echocardiogram and told to review this with Dr. Rico. This echo was reviewed in detail by myself and Dr. Jevon Cheema showing a probable bicuspid aortic valve cardiomyopathy, decreased left ventricular ejection fraction, and no evidence of thrombus, no evidence of PFO. DISCHARGE MEDICATIONS: Will include Zyloprim 300 mg p.o. daily, Pravachol 40 mg p.o. daily, Zestril 40 mg p.o. daily, Lasix 40 mg p.o. daily, Aldactone 12.5 mg p.o. daily, Eliquis 5 mg p.o. b.i.d. The patient was told to hold Lanoxin, Bystolic, and Ecotrin until further review with primary care physician. SUMMARY: This 71-year-old male was admitted to [facility] ([facility]) with concerns of stroke after presenting to ER complaining of slurred speech and dizziness earlier on the day of admission. He underwent a diagnostic workup where initial CAT scan showed nonspecific findings, but a followup brain MRI confirmed a right vermian infarct. The patient had a complete neurological evaluation by Dr. Tacho Lopez. He had no evidence of significant carotid artery or intracranial arterial disease. He had a 2D echocardiogram done that showed no evidence of thrombus and a bubble echo that was read by Dr. Jevon Cheema who was called in consultation that showed no evidence of PFO. At the time of discharge, the patient was fully ambulatory and without any slurred speech and with 5/5 motor strength and excellent balance. His vital signs showed temperature of 98.8, respirations 16, pulse 74, and blood pressure 127/84 with a pulse ox of 98% on room air. monitoring tech, atrial fibrillation. White count 9300, hemoglobin 14.1, hematocrit 42.1, platelets 316,000. PT/INR 1.08, PTT 32.8. Sodium 142, K 4.3, chloride 105, bicarb 26. BUN 24, creatinine 1.2. Random blood sugar 106. All liver function testing was normal including bilirubin 0.5, AST 38, ALT 34, and alkaline phosphatase 63. Hemoglobin A1c 6.3, normal. B12, vitamin D, folic acid, and TSH levels were normal. Cholesterol 152, triglycerides 113, LDL 99, and HDL 33. The patient was discharged to home, given copies of echo and laboratories. He was given a revised medication list and told to follow up with his PMD within the next 2 days. He was also told for any change in signs and symptoms to present directly to the closest emergency room and he was fully apprised by both myself and Dr. Cheema that he will need serial echocardiography, given his abnormalities as listed above. The patient was aware and in agreement with the above. This was witnessed in the presence of his nurse, Yvonne Dobson, registered nurse. Greater than 35 minutes was spent in the care management, discharge, review of this patient today. All questions were answered. Kusum Truong MD MTDDaylin
== END 2017-04-24 18:50 | disposition home or self-care (01) | DRG 65 ==
LOC: ED 19:23 → ERH 22:10 → 2RNO 23:43 → OBSVTOIN 04-21 10:29
PROVIDERS: ADMIT Internal Medicine; ATTEND Internal Medicine
DX: I63.40 Cerebral infarction due to embolism of unspecified cerebral artery (principal); I42.9 Cardiomyopathy, unspecified; I27.20 Pulmonary hypertension, unspecified; Q23.1 Congenital insufficiency of aortic valve; I48.2 Chronic atrial fibrillation; I34.0 Nonrheumatic mitral (valve) insufficiency; I25.10 Atherosclerotic heart disease of native coronary artery without angina pectoris; M10.9 Gout, unspecified; I10 Essential (primary) hypertension; E78.00 Pure hypercholesterolemia, unspecified; E66.9 Obesity, unspecified; M19.90 Unspecified osteoarthritis, unspecified site; Z85.46 Personal history of malignant neoplasm of prostate; Z79.01 Long term (current) use of anticoagulants